=== PATIENT | male | born 1955 | race Caucasian/White ===

== ENCOUNTER → 2025-03-19 | Outpatient (CLI) | payer MEDICARE, OTHER ==
--- NOTE | 2025-03-19 12:32 | XR ---
EXAMINATION TYPE: XR Hip Complete 2 views LT DATE OF EXAM: 03/19/2025 11:47 AM COMPARISON: None CLINICAL INDICATION: Male, 69 years old with history of M25.552 PAIN IN LEFT HIP; PHH, pain FINDINGS: Diffuse osteopenia. Color osteophytes femoral head neck junction. Subchondral cystic changes especial ly along the lateral superior acetabular lip. Axial joint space narrowing. No acute fracture, subluxa tion or dislocation seen. IMPRESSION: Moderate left hip OA. There is osteopenia without displaced fracture. [facility], Workstation: [facility], 03/19/2025 12:30 PM
== END | disposition home or self-care (01) ==
LOC: RADXRMAIN 11:07
PROVIDERS: ATTEND Family Medicine
DX: M16.12 Unilateral primary osteoarthritis, left hip (principal); M85.852 Other specified disorders of bone density and structure, left thigh
CPT/HCPCS: 73502